=== PATIENT | male | born 1975 | race Caucasian/White ===

== ENCOUNTER 2022-04-18 15:57 | Inpatient (IN) | payer SELFPAY ==
--- NOTE | 2022-04-18 16:36 | XRay Report ---
CHEST WITH RIGHT RIBS 4 VIEWS 1616 INDICATION: pain, sob COMPARISON: None available. FINDINGS: Acute fracture is seen of the anterolateral aspect of the right 10th rib slight overriding and lateral displacement. No other fractures identified. A small right pneumothorax is noted in the apical area at approximately 5-10%. No obvious tension com ponent. No pleural effusions. No pulmonary infiltrates. No mediastinal widening. IMPRESSION: Acute right rib fracture with small right pneumothorax CRITICAL RESULT: Time of Discovery ([employer]OPMENT/CDT): 1522 CDT Time of Communication ([employer]ELOPMENT/CDT): 1525 CDT Licensed Practitioner Receiving Report: MELBA Miranda Read-Back Performed: Not applicable. Signer Name: Caden Enriquez MD Signed: 04/18/2022 4:31 PM Workstation Name: [id number]
[2022-04-18] MEDS ORDERED: HYDROcodone/ACETAMINOPHEN 5-325 MG TAB PO ONE (17:24)
[2022-04-18] MEDS ORDERED: ONDANSETRON 4 MG/2 ML INJ IV PRN (17:41)
[2022-04-18] MEDS ORDERED: ACETAMINOPHEN 325 MG TAB PO PRN (17:41)
[2022-04-18] MEDS ORDERED: HYDROmorphone 0.5 MG/0.5 ML INJ IV PRN (17:41)
[2022-04-18] MEDS ORDERED: ALBUTEROL 2.5 MG/3 ML NEBU IH PRN (17:41)
[2022-04-18] MEDS ORDERED: oxyCODONE /ACETAMINOPHEN 5-325MG TAB PO PRN (17:41)
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
--- NOTE | 2022-04-18 18:06 | XRay Report ---
CHEST 2 VIEWS 5:59 PM INDICATION / CLINICAL INFORMATION: Pneumothorax. COMPARISON: Right rib detail earlier today at 4:16 PM FINDINGS: SUPPORT DEVICES: None. HEART / MEDIASTINUM: The heart size and pulmonary vasculature are normal. LUNGS / PLEURA: No significant pulmonary or pleural abnormality. There is a small right apical pneumo thorax with approximately 1.3 cm of pleural separation compared to 1.4 cm previously. ADDITIONAL FINDINGS: No significant additional findings. IMPRESSION: Minimal change in the small right apical pneumothorax. Signer Name: Damien Banerjee MD Signed: 04/18/2022 6:02 PM Workstation Name: [id number]
[2022-04-19 05:03] VITALS: BP 106/73
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
== END 2022-04-19 15:58 | disposition home or self-care (01) | DRG 200 ==
LOC: ED 15:57 → 4A 17:41
PROVIDERS: ADMIT Internal Medicine; ATTEND Internal Medicine
DX: J93.9 Pneumothorax, unspecified (principal); S22.31XA Fracture of one rib, right side, initial encounter for closed fracture; Z82.49 Family history of ischemic heart disease and other diseases of the circulatory system; W18.30XA Fall on same level, unspecified, initial encounter; Y93.89 Activity, other specified; Y92.89 Other specified places as the place of occurrence of the external cause; Y99.8 Other external cause status
CPT/HCPCS: 71046; 94640; G0378